=== PATIENT | male | born 1960 | race Two or more races ===

== ENCOUNTER → 2023-07-24 06:00 | Outpatient (CLI) | payer OTHER ==
[~2023-07-24] VITALS: Ht 167.6 cm; Wt 115.7 kg
[~2023-07-24 06:00] MED LIST: AVAPRO150 MG PO
== END | disposition home or self-care (01) ==
LOC: LAB 06:00 → ADM 11:15 → CIR.AMB 07-29 07:00 → EDSTATUS 07-29 11:15 → CIR.AMB 07-29 11:15
PROVIDERS: ATTEND Urology
DX: A63.8 Other specified predominantly sexually transmitted diseases (principal)